=== PATIENT | female | born 1955 | race Caucasian/White ===

== ENCOUNTER 2016-11-29 01:22 | Inpatient (IN) | payer MEDICARE, OTHER ==
[~2016-11-29] VITALS: Ht 149.9 cm; Wt 83.0 kg
[~2016-11-29 01:22] MED LIST: BENA10TA48 PO; HYDR-906 PO; LEVO175T38 PO; LEVO500T72 PO; ONDA4TAB14 PO; ZOLP5TAB6 PO
[2016-11-29] MEDS ORDERED: ONDANSETRON 4 MG INJ IV STA (02:59)
[2016-11-29] MEDS ORDERED: morphine 4 MG/ML VIAL IV STA (02:59)
[2016-11-29 03:29] LABS: BASOPHILS % 0.1 % (0.0-2.0); EOSINOPHILS # 0.1 10^3/ul (0.0-0.5); EOSINOPHILS % 0.9 % (0.0-7.0); HEMATOCRIT 39.5 % (37.0-47.0); HEMOGLOBIN 13.2 g/dl (12.0-16.0); LYMPHOCYTES % 16.7 % (15.0-51.0); MEAN CORPUSCULAR HEMOGLOBIN 29.4 pg (29.0-33.0); MEAN CORPUSCULAR HGB CONC 33.4 g/dl (32.0-37.0); MEAN CORPUSCULAR VOLUME 87.9 fl (82.0-101.0); MEAN PLATELET VOLUME 8.4 fl (7.4-10.4); MONOCYTE # 0.5 10^3/ul (0.3-0.9); NEUTROPHIL # 9.3 10^3/ul (1.6-7.5); NEUTROPHILS % 78.3 % (39.0-77.0); PLATELET COUNT 239 10^3/UL (140-440); RED CELL DISTRIBUTION WIDTH 12.6 % (11.5-14.5); UNCORRECTED WBC 11.9 10^3/ul (4.8-10.8); WHITE BLOOD COUNT 11.9 10^3/ul (4.8-10.8)
[2016-11-29 03:35] LABS: CONDITION 1
[2016-11-29 03:37] LABS: ALBUMIN 4.3 g/dl (3.3-4.9); CHLORIDE 106 mmol/L (97-110); SODIUM 147 mmol/L (135-144)
[2016-11-29 03:38] LABS: ADD UMIC NO; POTASSIUM 4.3 mmol/L (3.5-5.1); URINE BILIRUBIN (Dip) NEGATIVE (NEGATIVE); URINE BLOOD (Dip) NEGATIVE (NEGATIVE); URINE COLOR LT. YELLOW (YELLOW); URINE GLUCOSE (Dip) NEGATIVE (NEGATIVE); URINE KETONES (Dip) 15 (NEGATIVE); URINE LEUKOCYTE ESTERASE (Dip) NEGATIVE (NEGATIVE); URINE NITRITE (Dip) NEGATIVE (NEGATIVE); URINE TOTAL PROTEIN (Dip) NEGATIVE (NEGATIVE); URINE UROBILINOGEN (Dip) 0.2 E.U./dL (0.1-1.0)
[2016-11-29 03:39] LABS: CREATININE 1.03 mg/dl (0.44-1.00)
[2016-11-29 03:40] LABS: ALANINE AMINOTRANSFERASE 30 IU/L (13-69); ALBUMIN/GLOBULIN RATIO 1.04; ALKALINE PHOSPHATASE 83 IU/L (42-121); ANION GAP 17 (8-16); ASPARTATE AMINO TRANSFERASE 36 IU/L (15-46); BILIRUBIN,INDIRECT 0.2 mg/dl (0-1.1); BILIRUBIN,TOTAL 0.2 mg/dl (0.2-1.3); BLOOD UREA NITROGEN 19 mg/dl (7-20); CARBON DIOXIDE 28 mmol/L (21-31); GLUCOSE 147 mg/dl (70-220); TOTAL PROTEIN 8.4 g/dl (6.1-8.1)
[2016-11-29 03:55] LABS: TROPONIN-I < 0.010 ng/ml (0.00-0.12)
[2016-11-29] MEDS ORDERED: HYDROmorphONE 1 MG/ML SYG IV STA (03:56)
--- NOTE | 2016-11-29 04:24 | RADRPT ---
PROCEDURE: CT of the abdomen and pelvis without contrast CLINICAL INDICATION: Patient experiencing Abdominal Pain. TECHNIQUE: Spiral CT images through the abdomen and pelvis without the use of contrast. The admin istered radiation dose is CTDI 21.04 and DLP 1228.01. One or more of the following dose reduction t echniques were used: automated exposure control, adjustment of the mA and/or kV according to patient size, or use of iterative reconstruction technique. COMPARISON: None FINDINGS: Lack of oral and intravenous contrast somewhat limits evaluation. Slight dependent atelectasis of the lung bases is seen. No pleural effusion is seen. Suture material of the stomach and gastroesop hageal junction is seen with small probable hiatal hernia versus dilated distal esophagus. The liver, spleen, adrenals, and pancreas are unremarkable in appearance. Tiny nonobstructing bilat eral renal stones are seen and there is a 1.8 cm probable cyst in the upper pole of the left kidney. No hydronephrosis or perinephric stranding is seen. No stones are seen in the ureters or bladder. Atherosclerotic change of the aorta is seen.. The gallbladder is slightly distended and there may be a stone or stones in the fundus.. There is no evidence for bowel obstruction, free air, or absc ess. The appendix is normal in appearance. There is colonic diverticulosis without evidence of div erticulitis. No adenopathy or ascites is seen. The uterus and possibly also the ovaries are surgical ly absent. There is mild degenerative change of the spine. Probable injection granulomas in the glu teal regions. IMPRESSION: Possible tiny gallstones. Postsurgical changes of the stomach and distal esophagus. Diverticulosis without evidence of diverticulitis. Normal appendix. Nonobstructing tiny renal stones and small p robable left renal cyst. RPTAT: [facility] Physician Tish Date Time Electronically viewed and signed by France Bartlett Physician on 11/29/2016 04:23 PATTIE/
[2016-11-29 06:53] VITALS: BP 161/73; RESP 18
[2016-11-29 08:00] VITALS: Ht 149.9 cm; Wt 83.0 kg
[2016-11-29 08:19] VITALS: BP 138/64; RESP 18
[2016-11-29] MEDS ORDERED: morphine 2 MG INJ IV PRN (10:30)
[2016-11-29] MEDS ORDERED: ONDANSETRON 4 MG INJ IV PRN (10:30)
[2016-11-29] MEDS: DEXTROSE 5%-0.45% NACL 1,000 ML IV SCH (11:34)
[2016-11-29 11:47] VITALS: BP 129/66; PULSE 63; RESP 18
[2016-11-29] MEDS ORDERED: hydrALAzine 20 MG INJ IV PRN (13:00)
--- NOTE | 2016-11-29 14:23 | HP ---
DATE OF ADMISSION: 11/29/2016 CHIEF COMPLAINT: Right upper quadrant severe pain the patient developed last night. 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 The patient with hyperlipidemia, take statin. The patient also with history of hypertension, was taking benazepril; however; anuradha salcedo, stated that over the last couple of years the patient has a stable blood pressure and does not ta ke any medication for blood pressure. The patient also lost about 70 pounds up to the stomach surge ry 5 years ago after which, according to the patient, her blood pressure has stabilized. The patien t takes 188 mcg of levothyroxine for hypothyroidism. The patient has known gallstones and was under going evaluation for possible cholecystectomy; however, the patient developed severe right quadrant abdominal pain and presented to the emergency room. In the emergency room, the patient underwent a CT of the abdomen and pelvis which showed gallbladder is slightly distended and there may be a stone or stones in the fundus. No evidence of bowel obstruction abscesses. The patient also had a suture material of the stomach and gastroesophageal junction with a small probably hiatal her yesi versus dilated distal esophagus. The patient also complained of nausea and vomiting and radiati on of the pain from right upper quadrant to the shoulder, which was relieved by morphine. The patie nt was admitted for further evaluation and management to medical/surgical floor. PAST MEDICAL HISTORY: Per HPI. PAST SURGICAL HISTORY: Status post laparoscopic stomach tumor removal 5 years ago, status post hyst erectomy in 1996. FAMILY HISTORY: Noncontributory. SOCIAL HISTORY: Patient lives at home with her family. The patient denies any tobacco use, denies any illicit drug use, denies any alcohol use. ALLERGIES: NO KNOWN ALLERGIES. MEDICATIONS ON ADMISSION: The patient takes levothyroxine 188 mcg. The patient also stated that sh e takes statin, does not remember the name, every bedtime. REVIEW OF SYSTEMS: A 12-point review of systems is negative unless what is mentioned in the HPI. PHYSICAL ASSESSMENT: GENERAL: Well-developed, obese female, currently is awake, alert. VITAL SIGNS: Temperature is 98.0, pulse is 63, blood pressure is 129/66, respiratory rate 18, oxyge n saturation 97% on room air. HEENT: Head is atraumatic, normocephalic. Pupils equal, round, reactive to light and accommodation . Oral mucosa is pink and moist. NECK: Supple, no cervical lymphadenopathy, no thyromegaly. CHEST: Lungs clear bilaterally. There are no rhonchi, wheezes, rales noted. CARDIOVASCULAR: Normal S1, S2. No murmurs, gallops, clicks, rubs noted. ABDOMEN: Round, soft, nondistended. The patient has a right upper quadrant tenderness on palpation . Bowel sounds active. There is no guarding. EXTREMITIES: No edema, clubbing, cyanosis. Pulses equal bilaterally 2+. SKIN: There is no rash, petechiae noted. NEUROLOGIC: The patient is awake, alert and oriented x4. No focal deficits noted. Motor strength 5/5 in all extremities. LABORATORY DATA: On admission, CBC: White blood cells 11.9, hemoglobin 13.2, hematocrit 39.5, plat elets 239. Chemistry: Sodium is 147, potassium 4.3, chloride 106, carbon dioxide 28, anion gap 17, BUN is 19, creatinine 1.03, glucose 143, troponin less than 0.01. Lipase 271. A urinalysis is neg ative. ASSESSMENT AND PLAN: 1. Acute biliary colic. We will admit the patient to medical/surgical floor. Zofran p.r.n. for na usea and morphine p.r.n. for pain. Continue IV fluids. 2. Possible cholecystitis. Will start patient on Zosyn. 3. Systemic inflammatory response syndrome with leukocytosis secondary to #1. 4. Hypothyroidism. Continue Synthroid. 5. Hyperlipidemia, continue statin. We will ask Dr. Desai to see patient in gastroenterology consultation. Will ask Dr. Lindo to see p atient in general surgery consultation. Will start Lovenox for deep venous thrombosis prophylaxis a nd Protonix for peptic ulcer disease prophylaxis. Further recommendations based on clinical course. Plan of care discussed with Dr. Shelby. Dictated By: ROBERTA BENAVIDES SHIFT MECHANIC for GARTH SHELBY MD SR/NTS Conf#: [id number] DID#: [id number]
[2016-11-29] MEDS: ENOXAPARIN 40 MG/0.4 ML SYG SC SCH (15:37)
[2016-11-29] MEDS: PIPER-TAZO 3.375 GM IV (PMX) 100 ML IVPB SCH (18:57)
[2016-11-29 20:00] VITALS: BP 129/62; RESP 20
[2016-11-30] VITALS (7 sets, daily range): BP systolic 119–175; BP diastolic 60–78; PULSE 60–85; RESP 16–23
[2016-11-30] MEDS: PIPER-TAZO 3.375 GM IV (PMX) 100 ML IVPB SCH ×4 (02:21→18:10)
[2016-11-30] MEDS: DEXTROSE 5%-0.45% NACL 1,000 ML IV SCH ×2 (02:21→15:36)
[2016-11-30 05:43] LABS: BASOPHILS % 0.3 % (0.0-2.0); EOSINOPHILS # 0.3 10^3/ul (0.0-0.5); EOSINOPHILS % 3.6 % (0.0-7.0); HEMATOCRIT 34.1 % (37.0-47.0); HEMOGLOBIN 11.5 g/dl (12.0-16.0); LYMPHOCYTES # 1.6 10^3/ul (0.8-2.9); LYMPHOCYTES % 21.1 % (15.0-51.0); MEAN CORPUSCULAR HEMOGLOBIN 29.4 pg (29.0-33.0); MEAN CORPUSCULAR HGB CONC 33.6 g/dl (32.0-37.0); MEAN CORPUSCULAR VOLUME 87.5 fl (82.0-101.0); MEAN PLATELET VOLUME 8.9 fl (7.4-10.4); MONOCYTE # 0.6 10^3/ul (0.3-0.9); MONOCYTES % 7.6 % (0.0-11.0); NEUTROPHILS % 67.4 % (39.0-77.0); PLATELET COUNT 178 10^3/UL (140-440); UNCORRECTED WBC 7.4 10^3/ul (4.8-10.8); WHITE BLOOD COUNT 7.4 10^3/ul (4.8-10.8)
[2016-11-30] MEDS: PANTOPRAZOLE 40 MG INJ IV SCH (05:43)
[2016-11-30 05:53] LABS: CONDITION 1
[2016-11-30 06:01] LABS: CHLORIDE 106 mmol/L (97-110)
[2016-11-30 06:02] LABS: POTASSIUM 4.1 mmol/L (3.5-5.1); SODIUM 142 mmol/L (135-144)
[2016-11-30 06:04] LABS: CREATININE 0.93 mg/dl (0.44-1.00)
[2016-11-30 06:05] LABS: ANION GAP 12 (8-16); BLOOD UREA NITROGEN 11 mg/dl (7-20); CARBON DIOXIDE 28 mmol/L (21-31); GLUCOSE 108 mg/dl (70-220)
[2016-11-30] MEDS ORDERED: LEVOTHYROXINE 175 MCG TAB PO SCH (07:00)
[2016-11-30 07:35] LABS: THYROID STIMULATING HORMONE < 0.015 MIU/L (0.465-4.680)
[2016-11-30] MEDS: ENOXAPARIN 40 MG/0.4 ML SYG SC SCH (09:00)
[2016-11-30] MEDS ORDERED: MIDAZOLAM 1 MG/ML 2 ML INJ ONE (10:09)
[2016-11-30] MEDS ORDERED: PROPOFOL 20 ML ONE (10:09)
[2016-11-30] MEDS ORDERED: LIDOCAINE 2% (SDV) 5 ML INJ ONE (10:09)
[2016-11-30] MEDS ORDERED: DIPHENHYDRAMINE 50 MG INJ IV PRN (11:00)
[2016-11-30] MEDS ORDERED: METOCLOPRAMIDE 10 MG INJ IV PRN (11:00)
[2016-11-30] MEDS ORDERED: OXYCODONE/ACETAMINOPHEN (5/325) TAB PO PRN (11:00)
[2016-11-30] MEDS ORDERED: MEPERIDINE 25 MG INJ IV PRN (11:00)
[2016-11-30] MEDS ORDERED: ONDANSETRON 4 MG INJ IV PRN (11:00)
[2016-11-30] MEDS ORDERED: FENTAnyl 50 MCG/ML VIAL IV PRN (11:00)
--- NOTE | 2016-11-30 17:14 | PN ---
Date/Time of Note Date/Time of Note DATE: 11/30/16 TIME: 17:11 Assessment/Plan VTE Prophylaxis VTE Prophylaxis Intervention: SCD's Lines/Catheters IV [facility]ter Type [facility]from [facility]): Peripheral IV Urinary Cath still in place: No Assessment/Plan Chief Complaint/Hosp Course ASSESSMENT AND PLAN: 1. Symptomatic cholelithiasis. Zofran p.r.n. for nausea and morphine p.r.n. for pain. Continue IV fluids. Dr. Spear is asked to see patient in surgical consultation. 2. Possible cholecystitis. Continue Zosyn. 3. Systemic inflammatory response syndrome with leukocytosis secondary to #1. 4. Hypothyroidism. Continue Synthroid. 5. Hyperlipidemia, continue statin. Continue Lovenox for deep venous thrombosis prophylaxis and Protonix for peptic ulcer disease prophylaxis. Further recommendations based on clinical course. Plan of care discussed with Dr. Christian. Problems: Subjective 24 Hr Interval Summary Free Text/Dictation Patient status post upper endoscopy, started on clear liquid diet, pain is well controlled, patient denies nausea vomiting. Exam/Review of Systems Vital Signs Vitals Vital Signs Date Time Temp Pulse Resp B/P Pulse Ox O2 Delivery O2 Flow Rate FiO2 11/30/16 11:41 97.8 68 16 138/76 95 Room Air 11/30/16 10:22 4.0 Intake and Output 11/29/16 11/29/16 11/30/16 15:00 23:00 07:00 Intake Total 590 ml 785 ml Balance 590 ml 785 ml Exam GENERAL: Well-developed, obese female, currently is awake, alert. HEENT: Head is atraumatic, normocephalic. NECK: Supple, no cervical lymphadenopathy, no thyromegaly. CHEST: Lungs clear bilaterally. There are no rhonchi, wheezes, rales noted. CARDIOVASCULAR: Normal S1, S2. No murmurs, gallops, clicks, rubs noted. ABDOMEN: Round, soft, nondistended. The patient has a right upper quadrant tenderness on palpation. Bowel sounds active. EXTREMITIES: No edema, clubbing, cyanosis. Pulses equal bilaterally 2+. SKIN: There is no rash, petechiae noted. NEUROLOGIC: The patient is awake, alert and oriented x4. Results Result Diagram: 11/30/16 0430 11/30/16 0430 Results 24 hrs Laboratory Tests Test 11/30/16 04:30 Anion Gap 12 Basophils # 0.0 Basophils % 0.3 Blood Urea Nitrogen 11 Calcium Level 9.0 Carbon Dioxide Level 28 Chloride Level 106 Creatinine 0.93 Eosinophils # 0.3 Eosinophils % 3.6 Glucose Level 108 Hematocrit 34.1 L Hemoglobin 11.5 L Lymphocytes # 1.6 Lymphocytes % 21.1 Mean Corpuscular Hemoglobin 29.4 Mean Corpuscular Hemoglobin Concent 33.6 Mean Corpuscular Volume 87.5 Mean Platelet Volume 8.9 Monocytes # 0.6 Monocytes % 7.6 Neutrophils # 5.0 Neutrophils % 67.4 Nucleated Red Blood Cells # 0.0 Nucleated Red Blood Cells % 0.0 Platelet Count 178 # Potassium Level 4.1 Red Blood Count 3.90 L Red Cell Distribution Width 13.0 Sodium Level 142 Thyroid Stimulating Hormone (TSH) < 0.015 L White Blood Count 7.4 # Medications Medications Current Medications Ondansetron HCl (Zofran Inj) 4 mg Q6H PRN IV NAUSEA AND/OR VOMITING; Start 09/05 at 10:30 Morphine Sulfate 2 mg 2 mg Q4H PRN IV PAIN; Start 11/29/16 at 10:30 Dextrose/Sodium Chloride 1,000 ml @ 70 mls/hr [id number] IV Last administered on 11/30/16 02:21; Admin Dose 70 MLS/HR; Start 11/29/16 at 11:00 Piperacillin Sod/ Tazobactam Sod (Zosyn 3.375gm/ 100 ml (Pmx)) 100 ml @ 25 mls/ hr TID@18 IVPB Last administered on 11/30/16 11:32; Admin Dose 25 MLS/HR ; Start 11/29/16 at 18:00 Pantoprazole (Protonix Iv) 40 mg DAILY@06 IV Last administered on 11/30/16 05: 43; Admin Dose 40 MG; Start 11/30/16 at 06:00 Enoxaparin Sodium (Lovenox) 40 mg DAILY SC Last administered on 11/29/16 15:37 ; Admin Dose 40 MG; Start 11/29/16 at 14:00 Hydralazine HCl (Apresoline) 10 mg Q6H PRN IV SBP>170; Start 11/29/16 at 13:00 Levothyroxine Sodium (Synthroid) 88 mcg DAILY@06 PO ; Start 12/01/16 at 06:00 ROBERTA BENAVIDES Nov 30, 2016 17:14
--- NOTE | 2016-11-30 18:32 | GILP ---
DATE OF PROCEDURE: 11/30/2016 NAME OF PROCEDURE: Esophagogastroduodenoscopy. PREOPERATIVE DIAGNOSIS: Patient presenting with history of abdominal pain on intermittent basis goi ng on for quite some time, rule out peptic ulcer disease, esophagitis, etc. POSTOPERATIVE DIAGNOSES: 1. Large hiatal hernia was noted with no significant reflux esophagitis. 2. There is evidence of a lobulated polyp noted in the mid body of the stomach. 3. Minimal antral gastritis noted. DESCRIPTION OF PROCEDURE: After informed written consent was obtained, the patient was asked to lie on the left lateral side. Intravenous anesthesia was given by anesthesiologist, Dr. Espino. When th e patient became somnolent, the Olympus video upper endoscope was introduced into the oropharynx, th en into the esophagus. Esophagus showed hiatal hernia, which is about 5 cm long, no significant ref lux esophagitis noted. Scope at this time was advanced into the stomach. About a 12 mm lobulated p olyp was noted in the mid body of the stomach. This polyp was biopsied. Scope at this time was adv anced into the duodenum. Entire duodenum appeared normal. However, the antrum of the stomach showe d evidence of erythema with no ulcers, no neoplasm. Fundus of the stomach appeared normal. It appe ars like the stomach has got an elongated shape, but it needs to have upper GI to confirm this. Bio psy was obtained from the antrum, the lesser curvature and the fundus to rule out H. pylori infectio n. Scope at this time was withdrawn and no additional abnormalities detected and the procedure was terminated. PLAN: Recommend proton pump inhibitor therapy. Dictated By: MAURO RODRIGUEZ/SUE Conf#: [id number] DID#: [id number] CC: GARTH SHELBY MD;*EndCC*
[2016-12-01] MEDS: DEXTROSE 5%-0.45% NACL 1,000 ML IV SCH ×2 (01:08→20:12)
[2016-12-01] MEDS: PIPER-TAZO 3.375 GM IV (PMX) 100 ML IVPB SCH ×3 (02:00→17:10)
[2016-12-01] MEDS: PANTOPRAZOLE 40 MG INJ IV SCH (05:15)
[2016-12-01] MEDS ORDERED: LEVOTHYROXINE 88 MCG TAB PO SCH (06:00)
[2016-12-01 06:01] LABS: BASOPHILS % 0.3 % (0.0-2.0); EOSINOPHILS # 0.3 10^3/ul (0.0-0.5); EOSINOPHILS % 4.9 % (0.0-7.0); HEMATOCRIT 34.3 % (37.0-47.0); HEMOGLOBIN 11.6 g/dl (12.0-16.0); LYMPHOCYTES # 1.5 10^3/ul (0.8-2.9); LYMPHOCYTES % 28.2 % (15.0-51.0); MEAN CORPUSCULAR HEMOGLOBIN 29.6 pg (29.0-33.0); MEAN CORPUSCULAR HGB CONC 33.8 g/dl (32.0-37.0); MEAN CORPUSCULAR VOLUME 87.4 fl (82.0-101.0); MEAN PLATELET VOLUME 8.7 fl (7.4-10.4); MONOCYTE # 0.5 10^3/ul (0.3-0.9); MONOCYTES % 8.7 % (0.0-11.0); NEUTROPHIL # 3.1 10^3/ul (1.6-7.5); NEUTROPHILS % 57.9 % (39.0-77.0); PLATELET COUNT 186 10^3/UL (140-440); RED BLOOD COUNT 3.92 10^6/ul (4.20-5.40); RED CELL DISTRIBUTION WIDTH 12.4 % (11.5-14.5); UNCORRECTED WBC 5.4 10^3/ul (4.8-10.8); WHITE BLOOD COUNT 5.4 10^3/ul (4.8-10.8)
[2016-12-01 06:10] LABS: CONDITION 1
[2016-12-01 06:30] LABS: CREATININE 0.82 mg/dl (0.44-1.00)
[2016-12-01 06:31] LABS: CALCIUM 9.1 mg/dl (8.4-10.2)
[2016-12-01 08:03] VITALS: BP 119/56; RESP 18
[2016-12-01] MEDS: ENOXAPARIN 40 MG/0.4 ML SYG SC SCH (08:42)
--- NOTE | 2016-12-01 18:02 | PN ---
Date/Time of Note Date/Time of Note DATE: 12/01/16 TIME: 18:00 Assessment/Plan VTE Prophylaxis VTE Prophylaxis Intervention: other Lines/Catheters IV Catheter Type (from Nrs): Peripheral IV Urinary Cath still in place: No Assessment/Plan Assessment/Plan 1. Acute biliary colic. Zofran p.r.n. for nausea and morphine p.r.n. for pain. Continue IV fluids. 2. Possible cholecystitis. Will start patient on Zosyn. 3. Systemic inflammatory response syndrome with leukocytosis secondary to #1. 4. Hypothyroidism. Continue Synthroid. 5. Hyperlipidemia, continue statin. We will ask Dr. Desai to see patient in gastroenterology consultation. Will ask Dr. Lindo to see patient in general surgery consultation. Will start Lovenox for deep venous thrombosis prophylaxis and Protonix for peptic ulcer disease prophylaxis. Further recommendations based on clinical course. Plan of care discussed with Dr. Christian. Subjective 24 Hr Interval Summary Eyes: no complaints ENT: no complaints Respiratory: no complaints Cardiovascular: no complaints Gastrointestinal: no complaints Genitourinary: no complaints Musculoskeletal: no complaints Skin: no complaints Neurologic: no complaints Endocrine: no complaints Lymphatic: no complaints Exam/Review of Systems Vital Signs Vitals Vital Signs Date Time Temp Pulse Resp B/P Pulse Ox O2 Delivery O2 Flow Rate FiO2 12/01/16 08:03 98.6 57 18 119/56 96 11/30/16 11:41 Room Air 11/30/16 10:22 4.0 Intake and Output 11/30/16 11/30/16 12/01/16 15:00 23:00 07:00 Intake Total 1180 ml 710 ml Balance 1180 ml 710 ml Exam Constitutional: alert, well developed Psych: nl mood/affect Head: atraumatic ENMT: nl external ears & nose Respiratory: clear to auscultation Cardiovascular: regular rate and rhythm Gastrointestinal: soft, tender Musculoskeletal: nl extremities to inspection Neurological: nl mental status, nl speech Skin: nl turgor Lymph: nontender Results Result Diagram: 12/01/1615 12/01/1615 Results 24 hrs Laboratory Tests Test 12/01/16 05:15 Anion Gap 14 Basophils # 0.0 Basophils % 0.3 Blood Urea Nitrogen 9 Calcium Level 9.1 Carbon Dioxide Level 29 Chloride Level 106 Creatinine 0.82 Eosinophils # 0.3 Eosinophils % 4.9 Glucose Level 98 Hematocrit 34.3 L Hemoglobin 11.6 L Lymphocytes # 1.5 Lymphocytes % 28.2 Mean Corpuscular Hemoglobin 29.6 Mean Corpuscular Hemoglobin Concent 33.8 Mean Corpuscular Volume 87.4 Mean Platelet Volume 8.7 Monocytes # 0.5 Monocytes % 8.7 Neutrophils # 3.1 Neutrophils % 57.9 Nucleated Red Blood Cells # 0.0 Nucleated Red Blood Cells % 0.0 Platelet Count 186 Potassium Level 4.0 Red Blood Count 3.92 L Red Cell Distribution Width 12.4 Sodium Level 145 H White Blood Count 5.4 # Medications Medications Current Medications Ondansetron HCl (Zofran Inj) 4 mg Q6H PRN IV NAUSEA AND/OR VOMITING; Start 09/05 at 10:30 Morphine Sulfate 2 mg 2 mg Q4H PRN IV PAIN; Start 11/29/16 at 10:30 Dextrose/Sodium Chloride 1,000 ml @ 70 mls/hr [id number] IV Last administered on 12/01/16 01:08; Admin Dose 70 MLS/HR; Start 11/29/16 at 11:00 Piperacillin Sod/ Tazobactam Sod (Zosyn 3.375gm/ 100 ml (Pmx)) 100 ml @ 25 mls/ hr TID@,,18 IVPB Last administered on 11/30/16 18:10; Admin Dose 25 MLS/HR ; Start 11/29/16 at 18:00 Pantoprazole (Protonix Iv) 40 mg DAILY@06 IV Last administered on 11/30/16 05: 43; Admin Dose 40 MG; Start 11/30/16 at 06:00 Enoxaparin Sodium (Lovenox) 40 mg DAILY SC Last administered on 12/01/16 08:42 ; Admin Dose 40 MG; Start 11/29/16 at 14:00 Hydralazine HCl (Apresoline) 10 mg Q6H PRN IV SBP>170; Start 11/29/16 at 13:00 Levothyroxine Sodium (Synthroid) 88 mcg DAILY@06 PO Last administered on 05:22; Admin Dose 88 MCG; Start 12/01/16 at 06:00 TOR MALONEY Dec 01, 2016 18:02
[2016-12-01 19:44] LABS: BASOPHILS % 0.4 % (0.0-2.0); EOSINOPHILS # 0.3 10^3/ul (0.0-0.5); EOSINOPHILS % 5.2 % (0.0-7.0); HEMATOCRIT 35.5 % (37.0-47.0); HEMOGLOBIN 11.9 g/dl (12.0-16.0); LYMPHOCYTES # 2.1 10^3/ul (0.8-2.9); LYMPHOCYTES % 37.6 % (15.0-51.0); MEAN CORPUSCULAR HEMOGLOBIN 29.4 pg (29.0-33.0); MEAN CORPUSCULAR HGB CONC 33.4 g/dl (32.0-37.0); MEAN CORPUSCULAR VOLUME 87.9 fl (82.0-101.0); MEAN PLATELET VOLUME 8.4 fl (7.4-10.4); MONOCYTE # 0.5 10^3/ul (0.3-0.9); MONOCYTES % 8.7 % (0.0-11.0); NEUTROPHIL # 2.6 10^3/ul (1.6-7.5); NEUTROPHILS % 48.1 % (39.0-77.0); PLATELET COUNT 193 10^3/UL (140-440); RED BLOOD COUNT 4.04 10^6/ul (4.20-5.40); RED CELL DISTRIBUTION WIDTH 12.5 % (11.5-14.5); UNCORRECTED WBC 5.5 10^3/ul (4.8-10.8); WHITE BLOOD COUNT 5.5 10^3/ul (4.8-10.8)
[2016-12-01 19:47] LABS: CONDITION 1
[2016-12-01 20:26] VITALS: BP 179/78; RESP 20
[2016-12-01 20:47] VITALS: BP 149/66
[2016-12-02] MEDS: PIPER-TAZO 3.375 GM IV (PMX) 100 ML IVPB SCH ×3 (02:00→18:00)
[2016-12-02] MEDS: PANTOPRAZOLE 40 MG INJ IV SCH (06:00)
[2016-12-02 07:19] LABS: POTASSIUM 3.8 mmol/L (3.5-5.1)
[2016-12-02 07:21] LABS: CREATININE 0.71 mg/dl (0.44-1.00)
[2016-12-02 07:22] LABS: CALCIUM 9.2 mg/dl (8.4-10.2)
[2016-12-02] MEDS: LEVOTHYROXINE 125 MCG TAB PO SCH (07:34)
[2016-12-02 08:00] VITALS: BP 131/58; RESP 20
[2016-12-02] MEDS: ENOXAPARIN 40 MG/0.4 ML SYG SC SCH (09:00)
--- NOTE | 2016-12-02 18:05 | PN ---
Date/Time of Note Date/Time of Note DATE: 12/02/16 TIME: 17:57 Assessment/Plan VTE Prophylaxis VTE Prophylaxis Intervention: SCD's Lines/Catheters IV Catheter Type (from Nrs): NO HL Urinary Cath still in place: No Assessment/Plan Chief Complaint/Hosp Course ASSESSMENT AND PLAN: 1. Symptomatic cholelithiasis. Zofran p.r.n. for nausea and morphine p.r.n. for pain. Continue IV fluids. D/w Dr Lindo today, pending surgical consult. 2. Possible cholecystitis. Continue Zosyn. 3. Systemic inflammatory response syndrome with leukocytosis secondary to #1. 4. Hypothyroidism. Continue Synthroid. 5. Hyperlipidemia, continue statin. 6. Status post EGD was nausea no gastritis, continue Protonix. Dr. Carranza is following in gastroenterology consultation. Continue Lovenox for deep venous thrombosis prophylaxis and Protonix for peptic ulcer disease prophylaxis. Further recommendations based on clinical course. Plan of care discussed with Dr. Christian. Problems: Exam/Review of Systems Vital Signs Vitals Vital Signs Date Time Temp Pulse Resp B/P Pulse Ox O2 Delivery O2 Flow Rate FiO2 12/02/16 08:00 98.6 72 20 131/58 98 11/30/16 11:41 Room Air 11/30/16 10:22 4.0 Intake and Output 12/01/16 12/01/16 12/02/16 15:00 23:00 07:00 Intake Total 1080 ml 480 ml Balance 1080 ml 480 ml Exam GENERAL: Well-developed, obese female, currently is awake, alert. HEENT: Head is atraumatic, normocephalic. NECK: Supple, no cervical lymphadenopathy, no thyromegaly. CHEST: Lungs clear bilaterally. There are no rhonchi, wheezes, rales noted. CARDIOVASCULAR: Normal S1, S2. No murmurs, gallops, clicks, rubs noted. ABDOMEN: Round, soft, nondistended. The patient has a right upper quadrant tenderness on palpation. Bowel sounds active. EXTREMITIES: No edema, clubbing, cyanosis. Pulses equal bilaterally 2+. SKIN: There is no rash, petechiae noted. NEUROLOGIC: The patient is awake, alert and oriented x4. Results Result Diagram: 12/01/16 1921 12/02/16 0455 Results 24 hrs Laboratory Tests Test 12/01/16 19:21 12/02/16 04:55 Basophils # 0.0 Basophils % 0.4 Eosinophils # 0.3 Eosinophils % 5.2 Hematocrit 35.5 L Hemoglobin 11.9 L Lymphocytes # 2.1 Lymphocytes % 37.6 Mean Corpuscular Hemoglobin 29.4 Mean Corpuscular Hemoglobin Concent 33.4 Mean Corpuscular Volume 87.9 Mean Platelet Volume 8.4 Monocytes # 0.5 Monocytes % 8.7 Neutrophils # 2.6 Neutrophils % 48.1 Nucleated Red Blood Cells # 0.0 Nucleated Red Blood Cells % 0.0 Platelet Count 193 Red Blood Count 4.04 L Red Cell Distribution Width 12.5 White Blood Count 5.5 Anion Gap 14 Blood Urea Nitrogen 9 Calcium Level 9.2 Carbon Dioxide Level 28 Chloride Level 107 Creatinine 0.71 Glucose Level 89 Potassium Level 3.8 Sodium Level 145 H Medications Medications Current Medications Ondansetron HCl (Zofran Inj) 4 mg Q6H PRN IV NAUSEA AND/OR VOMITING; Start 09/05 at 10:30 Morphine Sulfate 2 mg 2 mg Q4H PRN IV PAIN; Start 11/29/16 at 10:30 Dextrose/Sodium Chloride 1,000 ml @ 70 mls/hr [id number] IV Last administered on 12/01/16 01:08; Admin Dose 70 MLS/HR; Start 11/29/16 at 11:00 Piperacillin Sod/ Tazobactam Sod (Zosyn 3.375gm/ 100 ml (Pmx)) 100 ml @ 25 mls/ hr TID@02,10,18 IVPB Last administered on 11/30/16 18:10; Admin Dose 25 MLS/HR ; Start 11/29/16 at 18:00 Pantoprazole (Protonix Iv) 40 mg DAILY@06 IV Last administered on 11/30/16 05: 43; Admin Dose 40 MG; Start 11/30/16 at 06:00 Enoxaparin Sodium (Lovenox) 40 mg DAILY SC Last administered on 12/01/16 08:42 ; Admin Dose 40 MG; Start 11/29/16 at 14:00 Hydralazine HCl (Apresoline) 10 mg Q6H PRN IV SBP>170; Start 11/29/16 at 13:00 Levothyroxine Sodium (Synthroid) 125 mcg DAILY@06 PO Last administered on t 07:34; Admin Dose 125 MCG; Start 12/02/16 at 06:00 ROBERTA BENAVIDES Dec 02, 2016 18:04
[2016-12-02 19:09] LABS: ALBUMIN 3.9 g/dl (3.3-4.9); POTASSIUM 4.2 mmol/L (3.5-5.1)
[2016-12-02 19:11] LABS: CREATININE 0.77 mg/dl (0.44-1.00)
[2016-12-02 19:12] LABS: ALBUMIN/GLOBULIN RATIO 0.97; BILIRUBIN,INDIRECT 0.1 mg/dl (0-1.1); BILIRUBIN,TOTAL 0.1 mg/dl (0.2-1.3); TOTAL PROTEIN 7.9 g/dl (6.1-8.1)
[2016-12-02 20:16] VITALS: BP 136/76; RESP 18
[2016-12-03] MEDS: PIPER-TAZO 3.375 GM IV (PMX) 100 ML IVPB SCH ×2 (02:00→10:00)
[2016-12-03] MEDS: PANTOPRAZOLE 40 MG INJ IV SCH (06:00)
[2016-12-03] MEDS: LEVOTHYROXINE 125 MCG TAB PO SCH (06:06)
[2016-12-03 08:07] VITALS: BP 165/72; RESP 18
[2016-12-03 09:00] VITALS: BP 148/67; PULSE 61; RESP 18
[2016-12-03] MEDS: ENOXAPARIN 40 MG/0.4 ML SYG SC SCH (09:00)
--- NOTE | 2016-12-03 14:39 | CONS ---
DATE OF ADMISSION: 12/01/2016 DATE OF CONSULTATION: 12/03/2016 TYPE OF CONSULTATION: Surgical. REQUESTING PHYSICIAN: Dr. Christian's service. REASON FOR CONSULTATION: Abdominal pain, gallbladder disease, gallstones,. This consultation was requested from Dr. Lindo and I am covering Dr. Lindo today. This patient, who is 61 years old, apparently presented to this emergency room on 11/29/2016 because of a severe attack of pain in the right upper quadrant, referring to the posterior part of the body and also to the right shoulder area, associated with nausea and vomiting. Apparently the patient came here also in September of 2016, on the , complaining of almost the same kind of problem and they did an ultrasound at that time and they found that there was a gallstone, but there was no evidence of cholecystitis. So the patient was advised on a diet and pain medication and she was advised to go and see a surgeon. The patient states that she was free of pain since that time until on 11/29/2016 when she developed this kind of pain in the morning and so she came to the emergency room. On admission to the emergency room her vital signs were as follows: Temperature 96.7, heart rate 70 , respirations 20, blood pressure 226/93, saturation 99%. WBC was 11,900, with 78% segmented. BUN was 19, creatinine 1.03. Liver function tests were within normal limits. The patient was admitted and they gave her morphine and the pain came under control. Then a GI consultation was obtained. The GI colleague , Dr. Desai, decided to proceed with endoscopy, so an EGD was performed, which revealed the presence of a small hiatal hernia, about 5 cm, and also the presence of a polyp, about 1.2 cm, in the body of the stomach. Biopsy was obtained from the polyp and also for H. pylori, which both of them was negative for H. pylori and also for malignancy. A CT scan of the abdomen and chest was obtained on admission also and interpreted by the radiologist as: 1. Possible tiny gallstones. 2. Postsurgical changes of the stomach and distal esophagus. 3. Diverticulosis, without evidence of diverticulitis. 4. Normal appendix. 5. Nonobstructing tiny renal stones and a small probable left renal cyst. So the patient was stable during the course of hospital admission. No more acute attacks of pain and the gallbladder, as mentioned, was slightly distended , but there was no pericholecystic fluid or thickening of the wall; therefore, a surgical consultation was obtained. PAST MEDICAL HISTORY: The patient has been known to have hyperfunctioning of the thyroid and has been on levothyroxine 188 mcg per day for several years. PAST SURGICAL HISTORY: The patient has had a gastric sleeve operation , in [facility], about 6 years ago. At that time she was 250 pounds. ALLERGIES: NONE. MEDICATIONS: Levothyroxine. SOCIAL HISTORY: The patient is disabled because of a disk herniation this summer in L5 probably and S1 and collapse of the vertebra, and she has problems with her back and cannot walk a far distance, has pain on and off, so therefore she has been placed as a disabled person. PHYSICAL EXAMINATION: GENERAL: Patient is alert, awake, oriented x3. VITAL SIGNS: Today temperature 97.9, heart rate 61, respirations 18, blood pressure 148/67, saturation of 96% on room air. HEENT: Within normal limits. HEART: Regular rhythm. No murmur. LUNGS: Clear to auscultation. ABDOMEN: Protruded with fat. A scar of previous laparoscopic operation is present. There is no tenderness, there is no palpable mass. There is no Woods 's sign. EXTREMITIES: Lower extremities are within normal limits. IMPRESSION: 1. Symptomatic gallstone. 2. Hypothyroidism. 3. Lower spine degenerative disease and disk problem. PLAN: The patient is going to go home today, to be seen by Dr. Lindo in his office on 12/06/2016. Dr. Lindo will make a final decision for her operation. Continue her other medications at home. I informed the patient that she should be on a very low fat diet and no fried foods, and she understands and she is going to avoid having any fatty foods or fried foods until she gets the operation. Dictated By: CARMEN MEDRANO MD PS/NTS Conf#: [id number] DID#: [id number] CC: VIDAL LINDO MD;*EndCC* MTDD
--- NOTE | 2016-12-03 16:54 | DS ---
Date/Time of Note Date/Time of Note DATE: 12/03/16 TIME: 16:54 Discharge Summary Admission/Discharge Info Admit Date/Time Dec 01, 2016 at 22:24 Discharge Date/Time Hospital Course ASSESSMENT AND PLAN: 1. Symptomatic cholelithiasis. Zofran p.r.n. for nausea and morphine p.r.n. for pain. Continue IV fluids. D/w Dr Lindo today, pending surgical consult. 2. Possible cholecystitis. Continue Zosyn. 3. Systemic inflammatory response syndrome with leukocytosis secondary to #1. 4. Hypothyroidism. Continue Synthroid. 5. Hyperlipidemia, continue statin. 6. Status post EGD was nausea no gastritis, continue Protonix. Dr. Carranza is following in gastroenterology consultation. Continue Lovenox for deep venous thrombosis prophylaxis and Protonix for peptic ulcer disease prophylaxis. Further recommendations based on clinical course. Plan of care discussed with Dr. Christian. Home Meds Active Scripts Ondansetron (Ondansetron Odt) 4 Mg Tab.rapdis, 4 MG PO Q6H Y for NAUSEA AND/OR VOMITING, #14 TAB Prov:EWA [place] 10/03/16 Reported Medications Benazepril Hcl* (Benazepril Hcl*) 10 Mg Tablet, 10 MG PO DAILY, #30 TAB 10/03/16 Levothyroxine Sodium* (Levoxyl*) 175 Mcg Tablet, 175 MCG PO BEFORE BREAKFAST, # 30 TAB 10/03/16 Zolpidem Tartrate* (Zolpidem Tartrate*) 5 Mg Tablet, 5 MG PO QHS Y for INSOMNIA , #30 TAB 10/03/16 Discontinued Scripts Levofloxacin* (Levaquin*) 500 Mg Tablet, 500 MG PO DAILY, #7 TAB Prov:EWA [place] 10/03/16 Hydrocodone/Acetaminophen ([place] 5-325 Tablet) 1 Each Tablet, 1 TAB PO Q6H Y for PAIN, #7 TAB Prov:EWA [place] 10/03/16 Pending Labs Laboratory Tests Test 12/02/16 18:21 Alanine Aminotransferase (ALT/SGPT) 36IU/L (13-69) Albumin 3.9g/dl (3.3-4.9) Albumin/Globulin Ratio 0.97 Alkaline Phosphatase 67IU/L (42-121) Anion Gap 15 (8-16) Aspartate Amino Transf (AST/SGOT) 30IU/L (15-46) Blood Urea Nitrogen 11mg/dl (7-20) Calcium Level 10.0mg/dl (8.4-10.2) Carbon Dioxide Level 28mmol/L (21-31) Chloride Level 105mmol/L (97-110) Creatinine 0.77mg/dl (0.44-1.00) Direct Bilirubin 0.00mg/dl (0.00-0.20) Globulin 4.00g/dl (1.3-3.2) Glucose Level 102mg/dl (70-220) Indirect Bilirubin 0.1mg/dl (0-1.1) Potassium Level 4.2mmol/L (3.5-5.1) Sodium Level 144mmol/L (135-144) Total Bilirubin 0.1mg/dl (0.2-1.3) Total Protein 7.9g/dl (6.1-8.1) TOR MALONEY Dec 03, 2016 16:54
== END 2016-12-03 16:00 | disposition home or self-care (01) | DRG 446 ==
LOC: E/R 01:22 → PP2 05:25 → OBSVTOIN 12-01 22:24
PROVIDERS: ADMIT Internal Medicine; ATTEND Internal Medicine
PROC: 0DB68ZX Excision of Stomach, Via Natural or Artificial Opening Endoscopic, Diagnostic (ICD-10-PCS; principal; 2016-11-30 10:00)
DX: K80.00 Calculus of gallbladder with acute cholecystitis without obstruction (principal); E66.01 Morbid (severe) obesity due to excess calories; K44.9 Diaphragmatic hernia without obstruction or gangrene; K29.70 Gastritis, unspecified, without bleeding; K21.9 Gastro-esophageal reflux disease without esophagitis; E03.9 Hypothyroidism, unspecified; E78.5 Hyperlipidemia, unspecified; Z68.37 Body mass index [BMI] 37.0-37.9, adult
CPT/HCPCS: 74176; 80048; 80053; 81003; 83690; 84443; 84484; 85025; 88305; 88312; 93005; G0378; C9113; J1650; J2250; J2270; J2405; J2543; J7042

== ENCOUNTER 2016-12-13 13:48 | Emergency (ER) | END 2016-12-13 16:05 | disposition home or self-care (01) | DX: K80.50 Calculus of bile duct without cholangitis or cholecystitis without obstruction (principal); R11.2 Nausea with vomiting, unspecified; E03.9 Hypothyroidism, unspecified | CPT/HCPCS: 36415; 80053; 81003; 83690; 85025; 85610; 85730; 96374; 96375; 99284; J1885; J2270; J2405 ==